=== PATIENT | female | born 1950 | race Caucasian/White ===

== ENCOUNTER → 2020-01-16 | Outpatient (CLI) | payer OTHER, BC | LOC: SJCVC 14:24 | PROVIDERS: ATTEND Internal Medicine | DX: R06.02 Shortness of breath (principal); I10 Essential (primary) hypertension; E78.5 Hyperlipidemia, unspecified; E03.9 Hypothyroidism, unspecified; Z79.82 Long term (current) use of aspirin; Z79.899 Other long term (current) drug therapy; Z82.49 Family history of ischemic heart disease and other diseases of the circulatory system ==

== ENCOUNTER → 2020-01-22 | Outpatient (CLI) | payer OTHER, BC | LOC: SJCVCIMAG 13:54 | PROVIDERS: ATTEND Internal Medicine | DX: R06.00 Dyspnea, unspecified (principal) ==

== ENCOUNTER → 2020-02-08 | Outpatient (CLI) | payer OTHER, BC | LOC: RAD 13:09 | PROVIDERS: ATTEND Internal Medicine | DX: J98.6 Disorders of diaphragm (principal); R06.00 Dyspnea, unspecified ==